=== PATIENT | male | born 1935 | race Caucasian/White ===

== ENCOUNTER 2020-02-24 09:03 | Emergency (ER) | payer MEDICARE, OTHER, SELFPAY ==
[2020-02-24 09:13] VITALS: BP 83/51; PULSE 77; RESP 18; TEMP 36.3; O2SAT 95
[2020-02-24] MEDS: TETANUS,DIPHTHERIA,AC PERTUSSIS ADULT (0.5 ML) BOOSTRIX IM (09:56)
--- NOTE | 2020-02-24 10:40 | ED.WOUNDLAC ---
HPI - Wound/Laceration General Chief Complaint: Wound/Laceration Stated Complaint: Lac to right hand Time Seen by Provider: 02/24/20 10:00 Source: patient and RN notes reviewed Mode of arrival: ambulatory Limitations: no limitations History of Present Illness HPI narrative: Patient presents today with a laceration to his right hand that was sustained at home just prior to arrival with a fillet knife as he was trying to cut tape on a box. Patient is right-hand dominant but uses nondominant hand for cutting this morning. Denies pain. Patient has history of Parkinson's. He is not up-to-date on his tetanus vaccine. Denies pain currently. Related Data Home Medications Medication Instructions Recorded Confirmed atorvastatin 10 mg PO DAILY 02/24/20 02/24/20 bimatoprost [Lumigan] drp 02/24/20 carbidopa-levodopa 1 tablet PO QID 02/24/20 02/24/20 clonazepam 0.5 mg PO DAILY 02/24/20 02/24/20 gabapentin 300 mg PO TID 02/24/20 02/24/20 levetiracetam 250 mg PO DAILY 02/24/20 02/24/20 potassium chloride 10 meq PO DAILY 02/24/20 02/24/20 sertraline 50 mg PO DAILY 02/24/20 02/24/20 sitagliptin [Januvia] 100 mg PO DAILY 02/24/20 02/24/20 tamsulosin 0.4 mg PO DAILY 02/24/20 02/24/20 Allergies Allergy/AdvReac Type Severity Reaction Status Date / Time IVAN Inhibitors Allergy Unknown Unknown Verified 02/24/20 09:53 lisinopril Allergy Unknown Unknown Verified 02/24/20 09:53 Review of Systems Review of Systems: Narrative: CONSTITUTIONAL: Denies body aches, fever, chills, or sweats. EYES: Denies visual changes, redness, or discharge. ENT: Denies rhinorrhea, congestion, sore throat, or otalgia. CARDIOVASCULAR: Denies chest pain, palpitations, or edema. RESPIRATORY: Denies cough or dyspnea. GASTROINTESTINAL: Denies abdominal pain, nausea, vomiting, or diarrhea. GENITOURINARY: Denies dysuria or hematuria. SKIN: Denies rash, itching. + Right hand laceration MUSCULOSKELETAL: Denies back pain, joint pain, or myalgia. NEUROLOGIC: Denies headache, numbness, tingling, or weakness. PSYCH: Denies depression or anxiety. [facility] Past Medical History Medical History (Updated 02/24/20 @ 12:20 by Ericka Sevilla, [employer]INGE [employer]AVER, ) Diabetes Hyperlipidemia Parkinsons disease Comments At time of signature, I have reviewed and agree with nursing past medical, surgical, social and family history unless otherwise noted. Please see nursing chart for further information. There is no relevant family history pertinent to the presenting complaint Exam Narrative: Exam Narrative: GENERAL: Well-appearing, well-nourished, and in no acute distress. HEAD: Normocephalic, atraumatic. EYES: EOMI. No redness or drainage. Conjunctivae normal. ENT: Mucous membranes pink and moist. NECK: Normal AROM. CHEST: No respiratory distress. EXTREMITIES: 6cm full thickness linear laceration that began on the dorsum of the right hand between the 1st and 2nd metacarpals, extending into the interweb between the 1st and 2nd fingers. Distal sensation intact. Capillary refill normal. Full range of motion of all fingers against resistance. SKIN: Warm, dry, no rash. Capillary refill normal. Normal skin turgor. NEURO: No focal deficits. Alert and oriented x3. Shuffling steady. PSYCH: Flat affect. Course Vital Signs Vital signs: Vital Signs Temperature 97.4 F L 02/24/20 09:13 Pulse Rate 77 02/24/20 09:13 Respiratory Rate 18 02/24/20 09:13 Blood Pressure 83/51 L 02/24/20 09:13 Pulse Oximetry 95 02/24/20 09:13 Temperature 97.4 F L 02/24/20 09:13 Pulse Rate 77 02/24/20 09:13 Respiratory Rate 18 02/24/20 09:13 Blood Pressure 83/51 L 02/24/20 09:13 Pulse Oximetry 95 02/24/20 09:13 Reviewed. Patient states his blood pressure can be somewhat erratic and it is not unusual for it to be very low at times. Denies any current dizziness or lightheadedness. Procedures Laceration Laceration 1: Date: 02/24/20 Time: 10:30 Site: [facility] e
== END 2020-02-24 10:51 | disposition home or self-care (01) ==
PROVIDERS: Emergency Provider Nurse Practitioner
DX: S61.411A Laceration without foreign body of right hand, initial encounter (principal); W26.0XXA Contact with knife, initial encounter; Z23 Encounter for immunization; E11.9 Type 2 diabetes mellitus without complications; E78.5 Hyperlipidemia, unspecified; G20 Parkinson's disease
CPT/HCPCS: 12002; 90471; 90715; 99212; G0463

== ENCOUNTER 2021-12-26 11:00 | Outpatient (RCR) | payer MEDICARE, SELFPAY ==
--- NOTE | 2021-11-06 14:45 | PTOPEVAL ---
PHYSICAL THERAPY EVALUATION AND PLAN OF CARE Thank you for referring Jayson Alvarado to [facility].? The patient is scheduled to be seen for therapy? 2x/week for 4 weeks. Please review, sign, date and return this plan of care FERNANDO. I agree with and certify that the following plan of care is medically necessary. Referring Physician Date Attending Provider: Katherine Collier MD Diagnosis Parkinson's disease Onset 15 years Subjective Information States that he has had a Query Text:As Reported By Patient/ significant amount of decline Family in function in the last year. His voice has declined quite a bit. His balance and walking have declines. He has chorea movements. , Samantha, reports that until about a year ago the PD did not interfere with their normal daily activities. Jayson has fallen several times in the last year. He fell and his his head. Can do the stairs while holding the banister. The more difficult tasks are walking and maintaing balance when upright . states that he starts to speed up and can't stop. loses balance when turning too quickly. Difficult to get out of low chairs and couches. Balance Assessment Romo Balance Assessment 34/56 Time Up Go (TUG) Timed Up and Go Test (TUG) (Seconds) 14 5 Time Sit to Stand Time in Seconds 20.8 Gait Assessment Gait Pattern Assessment Gait Pattern Shuffled Gait Gait Pattern Observed Decreased Stride Length - Right Other Gait Observations decreased amplitude of movement with right side more greatly affected 6 Minute Walk Total Distance (feet) 858 6 Minute Walk Gait Speed Score (feet/ 2.38 second) PT Clinical Summary Jayson is a 86 yo male presenting to outpatient physical therapy to participate in [facility] program. He and his family prefer a modified version for frequency secondary to travel distance from home. Jayson is a good candidate to participate
--- NOTE | 2021-11-23 14:30 | PCPTNOTE ---
Patient's called & cancelled patient's scheduled appointment this date due to the patient being to tired from being in the ED with a UTI.
--- NOTE | 2021-11-27 14:39 | PCPTNOTE ---
Patient called & cancelled scheduled appointment this date due to still having a UTI.
--- NOTE | 2021-12-06 11:13 | PTOPPROG ---
Evaluation Information Assessment Status Re-evaluation Subjective Information Jayson and his Samantha report: since starting therapy--balance is better and not as tired as was ; is recovering from UTI- just finished last antibiotic yesterday; was really ill from the UTI and have not gotten back to doing the HEP yet; fell few days ago, tripped over threshold into the dining room, he was able to get up off the floor by himself; Assessment PT Clinical Summary Jayson has received 6 PT sessions. He called/ canceled 3 appointments due to illness with UTI. He has had one fall since start of PT. Compared to the initial evaluation, he has improved with 6 minute walk test distance of 292 feet; TUG time decreased by 2 seconds; 5 reps sit/ stand time decreased by 7 seconds; Romo balance score improved by 9 points and self assessment functional score rating improved by 5 points. He is planning a trip to [place] in April and wants to be stronger to be able to do more in [place]. Continue PT to further improve his mobility skills and safety. Plan of Care Interventions Neuro Re-education,Patient/Caregiver Education, Therapeutic Activities,Therapeutic Exercise PT Services Indicated Yes Treatment Frequency and 2x/wk for 3 weeks Duration These treatments will address the objective and functional deficits as defined above. The patient will be advanced safely and appropriately in order for the patient to progress towards his/her prior level of function. Additional exercises will be introduced and as well as a comprehensive home exercise program upon discharge, if needed, ?to ensure carryover of functional gains achieved in the clinic. This treatment plan has been reviewed and agreement upon by the patient.
--- NOTE | 2021-12-26 11:40 | PTOPDC ---
Assessment and note entered by Lynda Ivory, PT Evaluation Information Assessment Status Discharge Subjective Information Jayson reports: having more issues with UTI- yesterday started antibiotic again; prior to this UTI returning, was better with walking and balance; not been doing all the exercises since not feeling well; last weekend, was able to go to park, walk in grass and carry food without any problems; getting up from couch on first trial about 60% time; have not had any falls; Reported Pain Level Pain Score 0: Self Report Assessment PT Clinical Summary Jayson has received 12 PT sessions. Compared to the last reevaluation: self assessment with functional scoring is the same--1 point improved with walking and 1 point decrease with rolling over in bed; Romo balance score improved by 7 points, TUG improved by 1 second; gait pattern improved with 6 minute walking test-- entire time he maintained upright posture and big steps with heel-toe pattern; He is independent with his home exercises. Discharge PT services. Plan of Care PT Services Indicated No
== END 2022-01-22 11:14 | disposition home or self-care (01) ==
LOC: ANHPT 11:00
PROVIDERS: PCP Internal Medicine Endocrinology, Diabetes & Metabolism
DX: G20 Parkinson's disease (principal)
CPT/HCPCS: 97110; 97112; 97116; 97162; 97530